=== PATIENT | female | born 1975 ===

== ENCOUNTER 2018-08-10 05:49 | Day surgery (SDC) | payer OTHER ==
--- NOTE | 2018-08-09 19:26 | Pre-Procedure Note/Attestation ---
Pre-Procedure Note/Attestation Complete Prior to Procedure Planned Procedure: not applicable Procedure Narrative: 1. ORIF nasa fracture 2. Septoplasty 3. SMR inf right turbinate 4. SMR inf left turbinate Indications for Procedure Pre-Operative Diagnosis: Nasal fracture Nasal septal deviation Bilateral hypertrophied inf. turbinates. Attestation I attest that I discussed the nature of the procedure; its benefits; risks and complications; and alternatives (and the risks and benefits of such alternatives ), prior to the procedure, with the patient (or the patient's legal technical account representative). I attest that, if there was a reasonable possibility of needing a blood transfusion, the patient (or the patient's legal technical account representative) was given the [place] Department [employer] standardized written summary, pursuant to the Joby Whitney Blood Safety Act ([place] Health and Safety Code # 1645, as amended). I attest that I re-evaluated the patient just prior to the surgery and that there has been no change in the patient's H&P, Ramiro Ferraro MD August 09, 2018 19:26
--- NOTE | 2018-08-09 19:30 | Discharge Instructions ---
Discharge Instructions Discharge Instructions Follow up with: 08/16/18 9:45AM Resume Normal Activity?: No Activity: light activity Pneumonia Vaccine: pt refused vaccine Influenza Vaccine (Dec to May): pt refused vaccine Follow Up Orders pt has printed post op instructions reviewed and given to pt. at her pre op visit on 08/04/18. Also has post op Rx for Amox and norco. Return to Work/School on: August 23, 2018 Special Instructions ice to face x 48 hours For Surgical Patients Dressing Care: may change May shower: No For Congestive Heart Failure Reminder Report to your physician any weight gain of 5 pounds or more in one week. Ramiro Ferraro MD August 09, 2018 19:30
--- NOTE | 2018-08-09 19:31 | Brief Operative Note ---
Immediate Post Operative Note Operative Note Pre-op Diagnosis: Nasal fracture Nasal septal deviation Bilateral hypertrophied inf. turbinates. Procedure: 1. ORIF nasa fracture 2. Septoplasty 3. SMR inf right turbinate 4. SMR inf left turbinate Post-op Diagnosis: same as pre-op Surgeon: Ramiro Ferraro Retail Reset Merchandiser: none Additional Surgeons: none Anesthesiologist: Osmin Anesthesia: general Specimen: none Complications: none Condition: stable Fluids: D5LR Estimated Blood Loss: volume - 25 cc Drains: none Packing: Stamberger nasal gel Implant(s) used?: No Ramiro Ferraro MD August 09, 2018 19:31
--- NOTE | 2018-08-09 19:42 | History and Physical ---
History & Physical (DB) History & Physical History & Physical Chief Complaint: Nasal fracture and nasal airway obstruction Reason for Hospitalization: outpt. History obtained from: Chart and Patient HPI: is a 42 year old female who presents with nasal deformity, septal deviation, hypertrophied inferior turbinates. . Past Medical History:unremarkable. Social History:Single, no childr Diagnosis: Nasal fracture, Nasal septal deviation, hypertrophied inferior turbinates. Past Surgical History:Rhinoplasty Occupational History:[employer] Smoking status:Light cig. smoker Smokeless tobacco:none Alcohol use:minimal Drug: none control/ protection: unknown Family History:unremarkable Allergies:NKDA Medications:none Review of Symptoms: General ROS: no weight loss or fever Psychological ROS: no depression or mood changes, no memory loss Ophthalmic ROS: no visual changes or eye irritation ENT ROS: + nasal congestion, hearing loss, dizziness Allergy and Immunology ROS: no allergic symptoms or urticaria Hematological and Lymphatic ROS: no swollen glands, unusual bleeding or bruising Endocrine ROS: no polyuria, polydipsia, weight changes, temperature intolerance Respiratory ROS: no cough, shortness of breath, or wheezing Cardiovascular ROS: no chest pain or dyspnea on exertion Gastrointestinal ROS: no abdominal pain, change in bowel habits, or black or bloody stools Musculoskeletal ROS: no myalgias or arthralgias Neurological ROS: no TIA or stroke symptoms Dermatological ROS: no new or changing skin lesions, rashes or pruritis Physical Exam Vitals: Intake/Output Summary (Last 24 hours) General appearance: alert, cooperative, no distress, appears stated age Head: Normocephalic, without obvious abnormality, atraumatic Eyes: conjunctivae/corneas clear. PERRL, EOM's intact. Throat: Lips, mucosa, and tongue normal. Teeth and gums normal Neck: supple, symmetrical, trachea midline, no adenopathy, thyroid: not enlarged, symmetric, no tenderness/mass/nodules, no carotid bruit and no JVD Lungs: clear to auscultation bilaterally Heart: regular rate and rhythm, S1, S2 normal, no murmur, click, rub or gallop Abdomen: soft, non-tender. Bowel sounds normal. No masses, no organomegaly Extremities: extremities normal, atraumatic, no cyanosis or edema Pulses: 2+ and symmetric Skin: Skin color, texture, turgor normal. No rashes or lesions Neurologic: Grossly normal Laboratories:not needed-otherwise healthy female under 45. Estimated:outpt. Imaging and ancillary data: none Assessment/Problem List:Nasal fracture, nasal septal deviation, hypertrophied inferior turbinates. Plan: 1. ORIF nasa fracture 2. Septoplasty 3. SMR inf right turbinate 4. SMR inf left turbinate DVT Prophylaxis: scd Code status: full Hospital Classification declaration: Based on this initial evaluation, and depending on the patient's clinical course, I anticipate that this patient will not require hospitalization as she is scheduled as an outpt. . Disposition: Once the patient is stable to leave the hospital, I anticipate the patient will likely be discharged to home with a friend or family member. Ramiro Ferraro MD August 09, 2018 19:42
[2018-08-10] VITALS (9 sets, daily range): BP systolic 104–119; BP diastolic 52–71
[~2018-08-10] VITALS: Ht 165.1 cm; Wt 54.4 kg
[~2018-08-10 05:49] MED LIST: NKM
[2018-08-10] MEDS ORDERED: Dexamethasone 4mg/ml vial IVP ONE (07:00)
[2018-08-10] MEDS ORDERED: ceFAZolin sod 1 GM in D5W 55 ML IV ONE (07:00)
[2018-08-10] MEDS ORDERED: Cocaine HCl 4% 4ml vial TOPIC ONE (07:04)
[2018-08-10] MEDS ORDERED: Lidocaine 1% 10mg/ml/Epi 0.005mg/ml 30ml vial INJ ONE (07:04)
[2018-08-10] MEDS ORDERED: Bupivacaine w/Epi 0.5% 30ml Vial INJ ONE (07:05)
[2018-08-10] MEDS ORDERED: LR 1000ml 1,000 ML IVLG SCH (07:25)
--- NOTE | 2018-08-10 07:25 | Anethesia Preoperative Eval ---
Anesthesia Pre-op PMH/ROS General Date of Evaluation: August 10, 2018 Anesthesiologist: Osmin ASA Score: ASA 1 Mallampati Score Class I : Soft palate, uvula, fauces, pillars visible Class II: Soft palate, uvula, fauces visible Class III: Soft palate, base of uvula visible Class IV: Only hard plate visible Mallampati Classification: Class I Surgeon: Ronan Diagnosis: Nasal fracture Surgical Procedure: Nasal ORIF, septoplasty, SMR TURBS Anesthesia History: none Family History: no anesthesia problems Allergies: Coded Allergies: No Known Allergies (Unverified , 08/09/18) Medications: see eMAR Patient NPO?: Yes NPO Date: August 09, 2018 NPO Time: 22:00 Past Medical History Cardiovascular: Denies: HTN, CAD, [place], valve dz, arrhythmia, other Pulmonary: Denies: asthma, COPD, CHRISTOPHER, other Gastrointestinal/Genitourinary: Denies: GERD, CRI, ESRD, other Neurologic/Psychiatric: Denies: dementia, CVA, depression/anxiety, TIA, other Endocrine: Denies: DM, hypothyroidism, steroids, other HEENT: Denies: cataract (L), cataract (R), glaucoma, RAMONA (L), RAMONA (R), other Hematology/Immune: Denies: anemia, DVT, bleeding disorder, other Musculoskeletal/Integumentary: Denies: OA, RA, DJD, DDD, edema, other PSxH Narrative: septoplasty Anesthesia Pre-op Phys. Exam Physician Exam Last Vital Signs Date Time Temp Pulse Resp B/P (MAP) Pulse Ox O2 Delivery O2 Flow Rate FiO2 08/10/18 06:19 97.9 62 20 114/58 98 Room Air Constitutional: NAD Cardiovascular: RRR Respiratory: CTA Airway Exam Mallampati Score: Class I MO: full ROM: full Teeth: intact Anesthesia Pre-op A/P Labs see chart Urine Test Test 08/10/18 06:00 Urine HCG, Qualitative Negative (NEGATIVE) Studies Pre-op Studies: EKG - sr Risk Assessment & Plan Assessment: ASA I Plan: GA Status Change Before Surgery: No Pre-Antibiotics Drug: Ancef 1g Given Within 1 Hr of Incision: Yes Esther Moran MD August 10, 2018 07:25
[2018-08-10] MEDS ORDERED: Lidocaine 1% MPF 10mg/ml 5ml ONE (07:28)
[2018-08-10] MEDS ORDERED: Propofol 200mg/20ml IV ONE ×2 (07:28→08:15)
[2018-08-10] MEDS ORDERED: Midazolam 2mg/2ml Inj IVP PRN (07:30)
[2018-08-10] MEDS ORDERED: DiphenhydrAMINE 50mg/ml Inj IVP PRN (07:30)
[2018-08-10] MEDS ORDERED: Metoclopramide 10mg/2ml Inj IVP PRN ×2 (07:30→14:01)
[2018-08-10] MEDS ORDERED: fentaNYL 100 mcg/2 mL IV PRN (07:30)
[2018-08-10] MEDS ORDERED: LORazepam Inj 2mg/ml 1ml IV PRN (07:30)
[2018-08-10] MEDS ORDERED: Hydromorphone 0.5mg/0.5ml inj IVP PRN (07:30)
[2018-08-10] MEDS ORDERED: Sterile Water Irrig 1000ml IRRIG ONE (07:53)
[2018-08-10] MEDS ORDERED: LR 1000ml ONE (07:53)
[2018-08-10] MEDS ORDERED: NS Irrig 1000ml ONE (07:53)
[2018-08-10] MEDS ORDERED: Dexamethasone 4mg/ml vial ONE (08:15)
[2018-08-10] MEDS ORDERED: Metoclopramide 10mg/2ml Inj ONE (08:15)
--- NOTE | 2018-08-10 08:52 | Immediate Post-Op Evaluation ---
Immediate Post-Op Evalulation Immediate Post-Op Evalulation Procedure: Nasal ORIF, septoplastly, SMR TURBS Date of Evaluation: August 10, 2018 Time of Evaluation: 08:54 IV Fluids: 800 Blood Products: 0 Estimated Blood Loss: 25 Urinary Output: 0 Blood Pressure Systolic: 104 Blood Pressure Diastolic: 52 Pulse Rate: 78 Respiratory Rate: 16 O2 Sat by Pulse Oximetry: 100 Temperature (Fahrenheit): 97.6 Pain Score (1-10): 0 Nausea: No Vomiting: No Complications 0 Patient Status: awake, reacts, patent, none Hydration Status: adequate Drug: Ancef 1g Given Within 1 Hr of Incision: Yes Esther Moran MD August 10, 2018 08:52
--- NOTE | 2018-08-10 08:53 | 48 Hour Post Anesthesia Eval ---
Post Anesthesia Evaluation Procedure: Nasal ORIF, septoplastly, SMR TURBS Date of Evaluation: August 10, 2018 Airway: patent Nausea: No Vomiting: No Pain Intensity: 0 Hydration Status: adequate Cardiopulmonary Status: at baseline Mental Status/LOC: patient returned to baseline Post-Anesthesia Complications: 0 Follow-up care needed: ready to discharge Esther Moran MD August 10, 2018 08:53
[2018-08-10] MEDS ORDERED: HYDROcodone/Acetamin 5/325 tab ORAL PRN (14:01)
--- NOTE | 2018-08-10 16:00 | Operative Note - Dictated ---
DATE OF OPERATION: 08/10/2018 SURGEON: Ramiro Ferraro M.D. COMPLIANCE PARALEGAL: None. ANESTHESIOLOGIST: Esther Solorio M.D. ANESTHESIA: LMA general anesthesia as well as 13 mL of 1% lidocaine with 1:100,000 epinephrine and Marcaine 0.5% 1:200,000 epinephrine 50:50 mixture. INDICATION FOR SURGERY: This is a revision surgery for the patient who had a rhinoplasty in 2017 and then had an injury at work. Her nose being broken and is now back for repair of nasal deformity, septal deviation, and hypertrophied right and left inferior turbinates. PREOPERATIVE DIAGNOSIS: This is a revision surgery for the patient who had a rhinoplasty in 2017 and then had an injury at work. Her nose being broken and is now back for repair of nasal deformity, septal deviation, and hypertrophied right and left inferior turbinates. POSTOPERATIVE DIAGNOSIS: This is a revision surgery for the patient who had a rhinoplasty in 2017 and then had an injury at work. Her nose being broken and is now back for repair of nasal deformity, septal deviation, and hypertrophied right and left inferior turbinates. FINDINGS: This is a revision surgery for the patient who had a rhinoplasty in 2017 and then had an injury at work. Her nose being broken and is now back for repair of nasal deformity, septal deviation, and hypertrophied right and left inferior turbinates. DESCRIPTION OF PROCEDURE: The patient prepped and draped in usual manner via LMA general anesthesia. I injected with the aforementioned lidocaine, Marcaine, and epinephrine mixture. A time-out was performed. All agreed as to the procedure and equipment required. Initially, between the cartilage and stab incisions were made inside the nose. I also made a [place] incision on the left-hand side of the septum. I then proceeded to elevate the periosteum on the left-hand side loosening the quadrangular cartilage. I then used a small osteotome to fracture the vomer on either side using an Evert forceps to put it back into place and removing the excess cartilage that was overhanging into the left side of the septum. This was sewn back into place with a 4-0 plain suture. I then proceeded to make a stab incision with radiofrequency wand, coated with saline gel for 10 seconds at a setting of 6 twice in either inferior turbinate, and outfractured with a Boies elevator. I then elevated with an elevator over the anterior aspect of the nose. A straight guarded osteotome to medial and low lateral to reduce the nasal fracture, which was going off to the left. This was done on both sides. I then used an angled scissors to remove extra scar and cartilage over the anterior part of the nose and rasped. I then proceeded to place the Stammberger nasal gel one syringe full between the two nostrils. Tape and stent was placed over the nose. Additionally, mustache dressing was placed. Please also note that prior to the beginning of the procedure, I placed 4 mL of 4% cocaine, 4 nasal pledgets, 2 on either nostril all of which were accounted for at the end of the case as well as sponge and needle count was correct. EBL: 25 mL. COMPLICATIONS: None. DRAINS: None. Ramiro Ferraro M.D. DR: ESTHER JOB#: [id number] CC:
== END 2018-08-10 10:10 | disposition home or self-care (01) ==
LOC: SUR 05:49
DX: M95.0 Acquired deformity of nose (principal); J34.2 Deviated nasal septum; J34.3 Hypertrophy of nasal turbinates; J34.89 Other specified disorders of nose and nasal sinuses; F17.210 Nicotine dependence, cigarettes, uncomplicated
CPT/HCPCS: 21320; 30520; 30930; 81025; J0690; J1100; J2250; J2405; J2704; J2765; J3010; 94003; 94150